=== PATIENT | female | born 1970 | race Caucasian/White ===

== ENCOUNTER → 2016-06-10 | Outpatient (CLI) | payer OTHER | LOC: HEART 5 13:33 | DX: J44.9 Chronic obstructive pulmonary disease, unspecified (principal); F17.200 Nicotine dependence, unspecified, uncomplicated; Z80.2 Family history of malignant neoplasm of other respiratory and intrathoracic organs | CPT/HCPCS: 94010 ==

== ENCOUNTER 2020-06-24 20:30 | Emergency (ER) | payer OTHER ==
[~2020-06-24 20:30] MED LIST: ABILIFY2 MG PO; ALBUTEROL2.5 MG/3 M INH; BENZONATATE200 MG PO; CARAFATE 1 GM TA1 GM PO; D3-501250 MCG PO; DEXILANT30 MG PO; DEXILANT60 MG PO; DULOXETINE HCL60 MG PO; FENOFIBRATE160 MG PO; FLONASE 0.05% N16 GM; FLUOXETINE HCL20 M1 PO; HYDROXYZINE HCL50 MG PO; KLONOPIN TAB 00.5 MG PO; LIDOCAINE 5% OINTMEN TOP; NAPROXEN500 MG PO; NEURONTIN 300300 MG PO; NITROGLYCERIN0.4 MG SL; TENORMIN 25 MG25 MG PO; TRAMADOL HCL50 MG PO; VENTOLIN HFA 66.7 GM INH; ZANTAC150 MG PO; ZOCOR10 MG PO
[2020-06-24 21:31] LABS: HEMOGLOBIN 17.2 gm/dl (12.3-15.3); RED BLOOD COUNT 5.19 M/UL (4.00-5.10); WHITE BLOOD COUNT 9.4 K/UL (4.5-11.0)
[2020-06-24 21:57] LABS: BUN/CREATININE RATIO 25 (0-10)
[2020-06-25] MEDS ORDERED: ZOFRAN ODT 4 MG4 MG PO (01:07)
[2020-06-25] MEDS ORDERED: POTASSIUM CHLO10 MEQ PO (01:07)
[2020-06-25] MEDS ORDERED: CEFUROXIME500 MG PO (01:07)
[2020-06-25] MEDS ORDERED: DOXYCYCLINE HY100 MG PO (01:07)
== END 2020-06-25 01:15 | disposition home or self-care (01) ==
LOC: ER1 20:30
PROVIDERS: Student in an Organized Health Care Education/Training Program
DX: J18.9 Pneumonia, unspecified organism (principal); E87.6 Hypokalemia; R11.10 Vomiting, unspecified; K21.9 Gastro-esophageal reflux disease without esophagitis; Z20.822 Contact with and (suspected) exposure to COVID-19; F17.200 Nicotine dependence, unspecified, uncomplicated; Z90.49 Acquired absence of other specified parts of digestive tract; Z90.710 Acquired absence of both cervix and uterus; Z88.0 Allergy status to penicillin; Z79.899 Other long term (current) drug therapy
CPT/HCPCS: 0240U; 71045; 80053; 81001; 82550; 82553; 83690; 83735; 83874; 83880; 84100; 84484; 85025; 93005; 96374; 96375; 99285; J2405; J2765; J3475; J7070; J7120

== ENCOUNTER → 2020-07-25 | Outpatient (CLI) | payer OTHER ==
[~2020-07-25] MED LIST changes: +CEFUROXIME500 MG PO; +DOXYCYCLINE HY100 MG PO; +POTASSIUM CHLO10 MEQ PO; +ZOFRAN ODT 4 MG4 MG PO
[2020-07-25 12:41] LABS: HEMOGLOBIN 16.5 gm/dl (12.3-15.3); RED BLOOD COUNT 4.94 M/UL (4.00-5.10); WHITE BLOOD COUNT 10.7 K/UL (4.5-11.0)
[2020-07-25 13:12] LABS: BUN/CREATININE RATIO 39 (0-10)
[2020-07-26 09:15] LABS: VITAMIN D, 25-HYDROXY 23.3 ng/mL (30.0-100.0)
== END ==
LOC: LAB 11:50
PROVIDERS: Family Medicine
DX: E78.5 Hyperlipidemia, unspecified (principal); I10 Essential (primary) hypertension; E55.9 Vitamin D deficiency, unspecified
CPT/HCPCS: 36415; 80053; 80061; 84439; 84443; 84481; 85027

== ENCOUNTER → 2020-10-05 | Outpatient (CLI) | payer OTHER | LOC: RAD 12:49 | DX: M47.26 Other spondylosis with radiculopathy, lumbar region (principal) | CPT/HCPCS: 72100 ==

== ENCOUNTER → 2020-10-12 | Outpatient (CLI) | payer OTHER | LOC: HEART 5 10:46 | DX: R07.89 Other chest pain (principal); I51.7 Cardiomegaly | CPT/HCPCS: 93306 ==

== ENCOUNTER → 2020-12-15 | Outpatient (CLI) | payer OTHER | LOC: MAMO 11-10 09:00 | DX: Z12.31 Encounter for screening mammogram for malignant neoplasm of breast (principal) | CPT/HCPCS: 77063; 77067 ==

== ENCOUNTER 2021-07-29 02:15 | Emergency (ER) | payer OTHER ==
[2021-07-29] MEDS ORDERED: IBUPROFEN600 MG PO (03:44)
[2021-07-29] MEDS ORDERED: ZOFRAN ODT 4 MG4 MG PO (03:44)
[2021-07-29] MEDS ORDERED: PERCOCET 5/325 T1 EA PO (03:46)
== END 2021-07-29 04:10 | disposition home or self-care (01) ==
LOC: ER1 02:15
DX: S92.414A Nondisplaced fracture of proximal phalanx of right great toe, initial encounter for closed fracture (principal); S60.221A Contusion of right hand, initial encounter; E11.9 Type 2 diabetes mellitus without complications; F17.210 Nicotine dependence, cigarettes, uncomplicated; Z88.0 Allergy status to penicillin; Z23 Encounter for immunization; W22.8XXA Striking against or struck by other objects, initial encounter; Y92.009 Unspecified place in unspecified non-institutional (private) residence as the place of occurrence of the external cause
CPT/HCPCS: 73130; 73610; 73630; 90471; 90715; 96372; 99283; J1885

== ENCOUNTER → 2021-09-11 | Outpatient (CLI) | payer OTHER ==
[~2021-09-11] MED LIST changes: +IBUPROFEN600 MG PO; +PERCOCET 5/325 T1 EA PO
== END ==
LOC: KOH-I 15:35
DX: S92.411D Displaced fracture of proximal phalanx of right great toe, subsequent encounter for fracture with routine healing (principal)
CPT/HCPCS: 73660

== ENCOUNTER → 2021-11-05 | Outpatient (CLI) | payer OTHER | LOC: HEART 5 14:24 | DX: J44.9 Chronic obstructive pulmonary disease, unspecified (principal) | CPT/HCPCS: 94060; 94729 ==